=== PATIENT | male | born 1990 | race African-American/Black ===

== ENCOUNTER 2016-07-27 16:24 | Emergency (ER) | payer SELFPAY ==
[~2016-07-27 16:24] MED LIST: ALBUTEROL17 GM; CYCLOBENZAPRINE10 M1 PO; DELTASONE50 MG PO; MOTRIN600 MG PO; NORCO 5-325 TA1 EACH PO; NORCO 5/325 TAB1 TAB PO; NORCO 7.5/325 T1 TAB PO; NYQUIL; PEN-VEE K500 MG PO; PREDNISONE10 M1 PO; PREDNISONE20 M1 PO; TRAMADOL HCL50 MG PO; ULTRAM50 M1 PO; VENTOLIN HFA18 G1 IH
[2016-07-27] MEDS ORDERED: ALLERGY MEDICATION (16:44)
[2016-07-27] MEDS ORDERED: ZYRTEC10 M7 PO (16:46)
[2016-07-27] MEDS ORDERED: PROMETHAZINE-C118 ML PO (18:24)
[2016-07-27] MEDS ORDERED: AMOXICILLIN875 M1 PO (18:24)
[2016-07-27] MEDS ORDERED: PROVENTIL HFA6.7 G1 (18:24)
[2016-07-27] MEDS ORDERED: PREDNISONE20 M1 PO (18:24)
[2016-07-27] MEDS ORDERED: VENTOLIN HFA18 G2 PO (18:27)
== END 2016-07-27 18:42 ==
LOC: EDMED 16:24
DX: J20.9 Acute bronchitis, unspecified (principal); J45.909 Unspecified asthma, uncomplicated